=== PATIENT | male | born 1980 ===

== ENCOUNTER 2023-04-29 13:04 | Outpatient (RCR) | payer OTHER ==
[~2023-04-29 13:04] MED LIST: ASPIRIN 32325 MG/TAB PO; NORCO 325 MG-7.1 TAB PO
== END 2023-05-24 ==
LOC: WSOH
DX: S83.8X2D Sprain of other specified parts of left knee, subsequent encounter (principal); S83.212D Bucket-handle tear of medial meniscus, current injury, left knee, subsequent encounter; M22.42 Chondromalacia patellae, left knee; Y99.0 Civilian activity done for income or pay